=== PATIENT | female | born 2000 | race American Indian/Alaskan Native ===

== ENCOUNTER 2020-08-27 21:11 | Emergency (ER) | payer SELFPAY ==
[2020-08-27 21:22] VITALS: BP 144/87
[2020-08-27 21:38] LABS: Basophils % (Auto) 0.4 % (0.0-1.8); Eosinophils # (Auto) 0.1 K/mm3 (0.0-0.4); Eosinophils % (Auto) 1.8 % (0.0-4.3); Hematocrit 42.7 % (30.3-42.9); Hemoglobin 14.4 gm/dl (10.1-14.3); Lymphocytes # (Auto) 2.9 K/mm3 (1.2-5.4); Lymphocytes % (Auto) 50.1 % (13.4-35.0); Mean Corpuscular HGB Conc 34 % (30-34); Mean Corpuscular Volume 95 fl (79-97); Monocytes # (Auto) 0.6 K/mm3 (0.0-0.8); Monocytes % (Auto) 9.7 % (0.0-7.3); Platelet Count 309 K/mm3 (140-440); Red Cell Distribution Width 13.8 % (13.2-15.2)
[2020-08-27 22:01] LABS: Alanine Aminotransferase 9 units/L (7-56); Albumin 4.6 g/dL (3.9-5); BUN/Creatinine Ratio 13; Blood Urea Nitrogen 13 mg/dL (7-17); Calcium 9.3 mg/dL (8.4-10.2); Hemolysis Index 10
[2020-08-28 00:44] LABS: Bilirubin,Urine NEG (Negative); Blood,Urine NEG (Negative); Color,Urine Yellow (Yellow); Protein,Urine <15 mg/dL mg/dL (Negative); Urobilinogen,Urine < 2.0 mg/dL (<2.0)
== END 2020-08-28 02:15 | disposition left against medical advice (07) ==
LOC: ED 21:11
DX: R06.02 Shortness of breath (principal); Z53.21 Procedure and treatment not carried out due to patient leaving prior to being seen by health care provider
CPT/HCPCS: 36415; 80053; 81001; 84703; 85025; 93005

== ENCOUNTER 2020-10-25 13:38 | Emergency (ER) | payer SELFPAY | END 2020-10-25 16:02 | disposition left against medical advice (07) | LOC: ED 13:38 | DX: Z53.21 Procedure and treatment not carried out due to patient leaving prior to being seen by health care provider (principal) ==

== ENCOUNTER 2020-12-12 20:28 | Emergency (ER) | payer SELFPAY ==
[2020-12-12 21:14] VITALS: BP 139/83
[2020-12-12 21:44] LABS: Amorphous Crystals,Urine Few; Bilirubin,Urine NEG (Negative); Blood,Urine NEG (Negative); Color,Urine Amber (Yellow); Mucus,Urine 3+ /HPF
== END 2020-12-12 21:16 | disposition left against medical advice (07) ==
LOC: ED 20:28
DX: N89.8 Other specified noninflammatory disorders of vagina (principal); Z53.21 Procedure and treatment not carried out due to patient leaving prior to being seen by health care provider
CPT/HCPCS: 81001; 87086

== ENCOUNTER 2021-01-08 00:18 | Emergency (ER) | payer SELFPAY ==
[2021-01-08 02:01] VITALS: BP 126/93
== END 2021-01-08 06:00 | disposition left against medical advice (07) ==
LOC: ED 00:18
DX: R30.9 Painful micturition, unspecified (principal); Z53.21 Procedure and treatment not carried out due to patient leaving prior to being seen by health care provider

== ENCOUNTER 2021-01-12 12:07 | Emergency (ER) | payer SELFPAY ==
[2021-01-12 14:00] VITALS: BP 103/72
--- NOTE | 2021-01-12 14:33 | XRay Report ---
RIGHT HAND, 4 VIEWS INDICATION / CLINICAL INFORMATION: right thumb injury. COMPARISON: None available. FINDINGS: No visible fracture or dislocation of the right hand. Specifically, the thumb has a normal radiograph ic appearance. No focal soft tissue abnormality noted. IMPRESSION: Negative radiographs of the right hand. Specifically, no acute finding related to the daljit mb. Signer Name: Cassandra De Anda MD Signed: 01/12/2021 2:29 PM Workstation Name: [id number]
--- NOTE | 2021-01-12 15:02 | Emergency Department Report ---
ED General Adult HPI - General Chief complaint: Extremity Injury, Upper Stated complaint: THUMB DISLOCATED Time Seen by Provider: 01/12/21 13:39 Source: patient Mode of arrival: Ambulatory Limitations: No Limitations - History of Present Illness Initial comments: 20-year-old -[place] female patient presents with complaints of right hand pain after punching a wall yesterday. She rates her pain is 8/10 in severity and states it is worse in the thumb. She denies any loss of sensation or decreased range of motion of the second through fifth digits. She states she is having difficulty bending the thumb. - Related Data Previous Rx's Medication Instructions Recorded Last Taken Type Naproxen [Naprosyn TAB] 500 mg PO BID PRN #20 tablet 01/12/21 Unknown Rx Allergies Allergy/AdvReac Type Severity Reaction Status Date / Time No Known Allergies Allergy Verified 08/27/20 21:20 ED Review of Systems ROS: Stated complaint: THUMB DISLOCATED Other details as noted in HPI Musculoskeletal: joint swelling, arthralgia Skin: denies: change in color Neurological: denies: numbness, paresthesias ED Past Medical Hx - Past Medical History Hx Renal Disease: Yes (one kidney) Hx Asthma: Yes Additional medical history: IBS - Surgical History Additional Surgical History: left kidney removed - Social History Smoking Status: Never Smoker Substance Use Type: Marijuana - Medications Home Medications: Home Medications Medication Instructions Recorded Confirmed Last Taken Type Naproxen [Naprosyn TAB] 500 mg PO BID PRN #20 tablet 01/12/21 Unknown Rx ED Physical Exam - General Limitations: No Limitations General appearance: alert, in no apparent distress - Head Head exam: Present: atraumatic, normocephalic - Eye Eye exam: Present: normal appearance - Respiratory Respiratory exam: Absent: respiratory distress - Cardiovascular Cardiovascular Exam: Present: regular rate - Expanded Upper Extremity Exam Right Hand Wrist exam: Present: tenderness (Mild tenderness to palpation noted to the second through fifth digits with significant tenderness palpation noted to the DIP joint of the thumb), swelling (DIP joint of thumb). Absent: ecchymosis, deformity Vascular: Present: normal capillary refill. Absent: vascular compromise - Neurological Exam Neurological exam: Present: alert, oriented X3 - Psychiatric Psychiatric exam: Present: normal affect, normal mood - Skin Skin exam: Present: warm, dry, intact, normal color. Absent: rash ED Course Vital Signs 01/12/21 13:50 Temperature 98.9 F Pulse Rate 84 Respiratory 18 Rate Blood Pressure 103/72 O2 Sat by Pulse 98 Oximetry ED Medical Decision Making - Radiology Data Radiology results: report reviewed RIGHT HAND, 4 VIEWS INDICATION / CLINICAL INFORMATION: right thumb injury. COMPARISON: None available. FINDINGS: No visible fracture or dislocation of the right hand. Specifically, the thumb has a normal radiographic appearance. No focal soft tissue abnormality noted. IMPRESSION: Negative radiographs of the right hand. Specifically, no acute finding related to the thumb. Signer Name: Cassandra De Anda MD Signed: 01/12/2021 2:29 PM Workstation Name: [id number] - Medical Decision Making 20-year-old -[place] female patient presents with complaints of right montero nd pain after punching a wall yesterday. She rates her pain is 8/10 in severity and states it is worse in the thumb. She denies any loss of sensation or decreased range of motion of the second through fifth digits. She states she is having difficulty bending the thumb. X-rays negative for any acute bony abnormalities. Will treat for right thumb sprain and hand sprain with Mitch wrap, thumb splint, and NSAIDs and icing. Patient to follow-up with PCP or orthopedics as needed. She is well-appearing, vitals within normal notes, she is stable for discharge home. Strict return precautions were discussed in detail with patient who verbalizes understanding. Critical care attestation.: If time is entered above; I have spent that time in minutes in the direct care of this critically ill patient, excluding procedure time. ED Disposition Clinical Impression: Injury of right hand Disposition: DC-01 TO HOME OR SELFCARE Is pt being admited?: No Condition: Stable Instructions: Intermetacarpal Sprain, Thumb Sprain Prescriptions: Naproxen [Naprosyn TAB] 500 mg PO BID PRN #20 tablet PRN Reason: pain Referrals: PRIMARY CARE, [Primary Care Provider] - 3-5 Days [facility] [Provider Group] - 3-5 Days [facility] [Provider Group] - as needed
== END 2021-01-12 19:39 | disposition home or self-care (01) ==
LOC: ED 12:07
DX: S69.91XA Unspecified injury of right wrist, hand and finger(s), initial encounter (principal); J45.909 Unspecified asthma, uncomplicated; F12.90 Cannabis use, unspecified, uncomplicated; Z79.899 Other long term (current) drug therapy; Z98.890 Other specified postprocedural states; X58.XXXA Exposure to other specified factors, initial encounter; Y93.89 Activity, other specified; Y92.89 Other specified places as the place of occurrence of the external cause; Y99.8 Other external cause status

== ENCOUNTER 2021-09-04 14:56 | Emergency (ER) | payer MEDICAID | END 2021-09-04 16:59 | disposition left against medical advice (07) | LOC: ED 14:56 | DX: Z30.9 Encounter for contraceptive management, unspecified (principal); Z53.21 Procedure and treatment not carried out due to patient leaving prior to being seen by health care provider ==